=== PATIENT | male | born 1955 | race Caucasian/White ===

== ENCOUNTER → 2020-06-07 11:16 | Outpatient (BNVA) | payer SELFPAY | PROVIDERS: Visit Provider Nurse Practitioner Family | DX: Z12.5 Encounter for screening for malignant neoplasm of prostate (principal); I10 Essential (primary) hypertension | CPT/HCPCS: 80053; 80061; 81000; 85025; G0103 ==

== ENCOUNTER → 2021-01-09 14:21 | Outpatient (BNVA) | payer MEDICARE, SELFPAY | PROVIDERS: PCP Nurse Practitioner Family; Visit Provider Nurse Practitioner Family | DX: M54.2 Cervicalgia (principal); I10 Essential (primary) hypertension | CPT/HCPCS: 80053; 80061; 84443; 85025 ==

== ENCOUNTER → 2021-07-26 12:35 | Outpatient (BNVA) | payer MEDICARE, SELFPAY | PROVIDERS: PCP Nurse Practitioner Family; Visit Provider Nurse Practitioner Family | DX: Z00.00 Encounter for general adult medical examination without abnormal findings (principal); Z12.5 Encounter for screening for malignant neoplasm of prostate; I10 Essential (primary) hypertension | CPT/HCPCS: 80053; 80061; 85025; G0103 ==

== ENCOUNTER → 2022-02-07 10:14 | Outpatient (BNVA) | payer MEDICARE, SELFPAY | PROVIDERS: PCP Nurse Practitioner Family; Visit Provider Nurse Practitioner Family | DX: I10 Essential (primary) hypertension (principal); F41.9 Anxiety disorder, unspecified; K21.9 Gastro-esophageal reflux disease without esophagitis; Z53.20 Procedure and treatment not carried out because of patient's decision for unspecified reasons; Z71.6 Tobacco abuse counseling | CPT/HCPCS: 80053; 80061; 85025 ==

== ENCOUNTER 2022-02-21 11:16 | Emergency (ER) | payer MEDICARE, SELFPAY ==
[2022-02-21 11:38] VITALS: BP 163/104; PULSE 88; RESP 16; TEMP 36.8; O2SAT 100; BMI 25.1
--- NOTE | 2022-02-21 11:52 | ED_ITS ---
HPI - Abdominal Pain General: Chief Complaint: Abdominal Pain Stated Complaint: Severe stomach pain Time Seen by Provider: 02/21/22 11:46 Source: patient Mode of arrival: ambulatory History of Present Illness: 66-year-old male comes in complaining of epigastric abdominal pain with nausea vomiting. He has had symptoms for the las t 4 days progressively worsening he states he is thrown up about 6 times today. Has severe epigastric discomfort denies any hematochezia melena hematemesis coffee-ground emesis we will chest pain. No dysuria urgency or frequency MD elicited complaint: abdominal pain Pertinent past history: none Onset (ago): minute(s) Pain Consistency: constant Location: Epigastric Severity: moderate Quality: cramping Radiation: none Exacerbating factors: nothing Relieving factors: nothing Associated Symptoms: Reports dyspepsia, nausea, poor appetite and vomiting; Denies anorexia, belching, bloating, change in bowel habits, change in stool character, chills, coffee ground emesis, constipation, GI cramping, diarrhea, dysuria, excessive flatus, fever(s), heartburn, hematochezia, hematuria, hematemesis, fecal incontinence, loose stools, melena and syncope Review of Systems Const: Denies: fever(s), chills, fatigue or malaise ENMT: Denies: throat pain, ear or mastoid pain, nasal discharge or nasal congestion Card: Denies: chest pain, palpitations, irregular heart rhythm or syncope Resp: Denies: dyspnea, productive cough or non-productive cough GI: Reports: abdominal pain, nausea and vomiting; Denies: hematemesis, coffee ground emesis, heartburn, diarrhea, constipation, bloating, GI cramping, belching, excessive flatus, fecal incontinence, change in bowel habits, change in stool character, hematochezia or melena : Denies: flank pain, difficulty urinating, dysuria, urinary frequency, urinary urgency or hematuria Skin/Breast: Denies: rash or pruritus PFSH ED PFSH: Social History Smoking and tobacco status: current every day smoker (1 PPD) Quit status (tobacco): not considering quitting Second hand smoke exposure: Yes Alcohol intake: current Alcohol intake frequency: 0-2 Drinks per Day Alcohol type: beer Caregiver/support person: Yes Lives independently: Yes Household members: spouse Marital status: Current occupational status: retired History of recent travel: No Current gender identity: Male Special alan needs: No Agree to transfusion: Yes Physical Exam Const: COMMON NORMALS: no acute distress GENERAL APPEARANCE: cooperative and comfortable ORIENTATION/CONSCIOUSNESS: Yes awake, Yes oriented to person, Yes oriented to place and Yes oriented to time HENMT: COMMON NORMALS: normocephalic, atraumatic and hearing grossly normal bilaterally HEAD & SCALP: normocephalic and atraumatic Lymph: LYMPHATIC: no lymphadenopathy noted and no lymphedema noted Resp: COMMON NORMALS: normal respiratory effort, No retractions, No use of accessory muscles and clear to auscultation bilaterally AUSCULTATION: clear to auscultation bilaterally Cardio: COMMON NORMALS: regular rate, regular rhythm and No murmurs present (Cardio) RATE: regular rate RHYTHM: regular rhythm GI: COMMON NORMALS: Soft to palpation and No hepatosplenomegaly present AUSCULTATION: Yes normoactive bowel sounds PALPATION: Yes Soft to palpation, Yes Tenderness to palpation present (GI) (Epigastric), No Guarding due to palpation present (GI) and Yes No hepatosplenomegaly present Extremity: COMMON NORMALS: normal to inspection, capillary refill normal, no clubbing, cyanosis or edema, no calf tenderness and no pedal edema Neuro: SENSORIUM/ORIENTATION: Yes oriented to person, Yes oriented to place and Yes oriented to time Skin: COMMON NORMALS: no rashes or lesions noted GENERAL SKIN EXAM: no rashes or lesions noted Course Vital Signs: Vital signs: Vital Signs Temperature 98.2 F 02/21/22 11:38 Pulse Rate 88 02/21/22 15:01 Respiratory Rate 19 H 02/21/22 15:01 Blood Pressure 169/91 02/21/22 15:01 Pulse Oximetry 97 02/21/22 15:01 Oxygen Delivery Me thod 02/21/22 11:38 MDM - Abdominal Pain Medical Decision Making Cholelithiasis without cholecystitis. He has a lot of reflux from put on Protonix 40 twice daily have him follow-up with his primary care doctor may need an EGD possible further evaluation of his gallbladder bland diet return if not improving Medical Records I reviewed the patient's medical records. Lab Data I reviewed the patient's lab results. : 02/21/22 12:00 02/21/22 12:00 Labs/Radiology: Radiology Impressions Abdomen/Pelvis CT 02/21/22 12:33 IMPRESSION: 1. Cholelithiasis. Very minimal early inflammatory changes noted at the neck of the gallbladder. No bile duct dilatation. This can be further evaluated by ultrasound if clinically thought necessary. 2. Distal colonic diverticulosis without acute diverticulitis. 3. Lobulated cystic mass with septations from the upper pole LEFT kidney. Mass measures 4.6 x 4.1 cm. This is not a simple cyst and needs to undergo surveillance as this could represent a complex cysts or cystic renal cell neoplasm. Recommend nonurgent renal mass CT protocol or renal MRI with and without contrast. 4. Hepatic cysts. 5. Moderate hiatal hernia. Gallbladder Ultrasound 02/21/22 14:25 IMPRESSION: 1. Cholelithiasis without gallbladder wall thickening or pericholecystic fluid. There are several stones present. Some of these stones are in the gallbladder neck. Potential for entrapment. 2. No bile duct dilatation. 3. Hepatic cysts. Laboratory Results WBC 14.1 10^3/uL (4.0-10.0) H 02/21/22 12:00 RBC 5.19 10^6/uL (4.1-5.3) 02/21/22 12:00 Hgb 17.0 g/dL (11.7-16.6) H 02/21/22 12:00 Hct 50.9 % (42.0-52.0) 02/21/22 12:00 MCV 98.1 fl (80-94) H 02/21/22 12:00 MCH 32.8 pg (28.0-34.0) 02/21/22 12:00 MCHC 33.4 g/dL (30.0-36.0) 02/21/22 12:00 RDW 13.3 % (12.1-15.1) 02/21/22 12:00 Plt Count 239 10^3/cmm (130-400) 02/21/22 12:00 MPV 11.5 fL (7.4-10.4) H 02/21/22 12:00 Neut % (Auto) 76.9 % 02/21/22 12:00 Lymph % (Auto) 15.5 % 02/21/22 12:00 Barton % (Auto) 6.9 % 02/21/22 12:00 Eos % (Auto) 0.1 % 02/21/22 12:00 Baso % (Auto) 0.2 % 02/21/22 12:00 Neut # (Auto) 10.85 10^3/uL (1.8-7.7) H 02/21/22 12:00 Lymph # (Auto) 2.2 10^3/uL (0.8-4.8) 02/21/22 12:00 Barton # (Auto) 1.0 10^3/uL (0.2-0.9) H 02/21/22 12:00 Eos # (Auto) 0.0 10^3/uL (0.0-0.8) 02/21/22 12:00 Baso # (Auto) 0.0 10^3/uL (0.0-0.1) 02/21/22 12:00 Nucleated RBC % (auto) 0 % 02/21/22 12:00 Nucleated RBCs # 0.0 /100WBC 02/21/22 12:00 Sodium 141 mmol/L (136-145) 02/21/22 12:00 Potassium 4.4 mmol/L (3.5-5.1) 02/21/22 12:00 Chloride 103 mmol/L (98-107) 02/21/22 12:00 Carbon Dioxide 27 mmol/L (22-29) 02/21/22 12:00 Anion Gap 15.4 (5-19) 02/21/22 12:00 BUN 13 mg/dL (8-23) 02/21/22 12:00 Creatinine 0.7 mg/dL (0.7-1.2) 02/21/22 12:00 GFR Calculation 112.5 mL/min (90-130) 02/21/22 12:00 Glucose 117 mg/dL (65-115) H 02/21/22 12:00 Calculated Osmolality 293 mOsm/kg (285-295) 02/21/22 12:00 Calcium 9.8 mg/dL (8.5-10.5) 02/21/22 12:00 Total Bilirubin 1.0 mg/dL (0.15-1.2) 02/21/22 12:00 AST 30 U/L (0-40) 02/21/22 12:00 ALT 19 U/L (0-41) 02/21/22 12:00 Alkaline Phosphatase 87 U/L (40-130) 02/21/22 12:00 Total Protein 7.0 g/dL (6.6-8.7) 02/21/22 12:00 Albumin 3.9 g/dL (3.5-5.2) 02/21/22 12:00 Globulin 3.1 g/dL (1.3-4.6) 02/21/22 12:00 Lipase 16 U/L (13-60) 02/21/22 12:00 Urine Color Yellow (Yellow) 02/21/22 15:09 Urine Appearance Clear (CLEAR) 02/21/22 15:09 Urine pH 7.0 (5-7) 02/21/22 15:09 Ur Specific [place] 1.015 (1.005-1.030) 02/21/22 15:09 Urine Protein Trace 02/21/22 15:09 Urine Glucose (UA) Negative (Normal) 02/21/22 15:09 Urine Ketones 2+ (Negative) A 02/21/22 15:09 Urine Blood Negative (Negative) 02/21/22 15:09 Urine Nitrate Negative 02/21/22 15:09 Urine Bilirubin Negative (Negative) 02/21/22 15:09 Urine Urobilinogen >=8.0 mg/dL (Negative) H 02/21/22 15:09 Ur Leukocyte Esterase Negative 02/21/22 15:09 Urine RBC 0-4 /hpf (0-2) H 02/21/22 15:09 Urine WBC 0-4 /hpf (0-5) H 02/21/22 15:09 Ur Squamous Epith Cells 0-4 /hpf (0-5) H 02/21/22 15:09 Amorphous Sediment Not Reportable 02/21/22 15:09 Urine Bacteria Trace /hpf (NONE) 02/21/22 15:09 Discharge Plan Discharge Patient Disposition: Home Clinical Impression: GERD (gastroesophageal reflux disease), Left kidney mass, Cholelithiasis Condition: Stable Prescriptions: New Protonix 40 mg tablet,delayed release (DR/EC) 40 mg PO BID Qty: 60 0RF Discontinued omeprazole 20 mg capsule,delayed release(DR/EC) 20 mg PO DAILY PRN (Reason: Heartburn) No Action lisinopril 20 mg tablet 20 mg PO QAM sertraline 100 mg tablet 100 mg PO QAM Discharge Orders: Discharge ED (Routine); Ordered 02/21/22 Ordered By: Armando Aguirre Referrals: Jaimie Dubon FNP [Primary Care Provider] - Discharge Diet: Usual diet Discharge Activity: Resume usual activity Patient Instructions: Opioid Safety, Pain Management Activity Restrictions/Additional Instructions: Follow-up with your primary care provider for referral for EGD and further evaluation of the gallstones. You also need further imaging of the left renal mass on an outpatient basis. Stop omeprazole start pantoprazole 40 mg twice daily. Coding Level of Care Code ED Stone Driller Helper for Chg Fwd Exam Comprehensive
[2022-02-21] MEDS: lidocaine 2% viscous 15 ML, aluminum-mag hydrox-simethicon 30 ML, sucralfate oral liq 1 GM PO (12:04)
[2022-02-21] MEDS: sodium chloride 0.9% 1,000 ML 999 ML IV (12:04)
[2022-02-21 12:09] LABS: Basophils % 0.2 %; Eosinophils % 0.1 %; Hematocrit 50.9 % (42.0-52.0); Lymphocytes # 2.2 10^3/uL (0.8-4.8); Lymphocytes % 15.5 %; Mean Corpuscular HGB Conc 33.4 g/dL (30.0-36.0); Mean Corpuscular Hemoglobin 32.8 pg (28.0-34.0); Mean Corpuscular Volume 98.1 fl (80-94); Mean Platelet Volume 11.5 fL (7.4-10.4); Monocytes % 6.9 %; Neutrophils # 10.85 10^3/uL (1.8-7.7); Neutrophils % 76.9 %; Nucleated Red Blood Cells % 0 %; Platelet Count 239 10^3/cmm (130-400); Red Blood Count 5.19 10^6/uL (4.1-5.3); Red Cell Distribution Width 13.3 % (12.1-15.1); White Blood Count 14.1 10^3/uL (4.0-10.0)
--- NOTE | 2022-02-21 12:10 | PC.NURSE ---
PT PLACED ON CONTINUOUS SPO2, NIBP, AND CM.
[2022-02-21 12:30] VITALS: BP 166/100; PULSE 60; RESP 14; O2SAT 97
[2022-02-21 12:32] LABS: Alanine Aminotransferase 19 U/L (0-41); Albumin Level 3.9 g/dL (3.5-5.2); Alkaline Phosphatase 87 U/L (40-130); Blood Urea Nitrogen 13 mg/dL (8-23); Calcium 9.8 mg/dL (8.5-10.5); Carbon Dioxide 27 mmol/L (22-29); Chloride 103 mmol/L (98-107); Creatinine Clr Calc Pharmacy 95.7512; Globulin 3.1 g/dL (1.3-4.6); Glomerular Filtration Rate 112.5 mL/min (90-130); Glucose 117 mg/dL (65-115); Lipase 16 U/L (13-60); Osmolality Calculated 293 mOsm/kg (285-295); Sodium 141 mmol/L (136-145)
--- NOTE | 2022-02-21 12:33 | CT_ITS ---
WS: [id number] CT ABDOMEN AND PELVIS WITH CONTRAST HISTORY: abd pain, nausea, vomiting and diarrhea TECHNIQUE: Imaging performed of the abdomen and pelvis with IV contrast. Single phase imaging of the abdomen. Coronal and sagittal reformats are submitted. All CT scans at [facility] use at [address] one of these dose optimization techniques: automated exposure control; mA and/or kV adjustment per patient size (includes targeted exams where dose is matched to clinical indication); or iterative re construction. IV CONTRAST: Omnipaque 350; 80 mL IV. Oral contrast: No DLP: 468.14 mGy.cm COMPARISON: None available. Lower thorax: Lung bases are clear. Heart is normal size. Moderate-sized hiatal hernia. Liver/biliary system: Scattered low-attenuation masses within the liver. The largest in the LEFT lobe measures 2.3 cm and is a cyst. Some of these low-attenuation lesions are too small to characterize. No bile duct dilatation. Gallbladder: Normally distended gallbladder. There is some very mild wall thickening and mild hyperem ia towards the neck of the gallbladder. There are stones within the lumen of the gallbladder. No comm on bile duct dilatation. Pancreas: Normal size pancreas and pancreatic duct. No adjacent inflammation. Spleen: Normal spleen with granulomata. Adrenal glands: Normal. Right kidney: Normal. Left kidney: Normal size kidney. There is an exophytic cystic mass with septations extending from the superior kidney. Mass is exophytic laterally and measures 4.6 x 4.1 cm. There are several septations noted within the mass. Septations are thin. Aorta: Normal. Lymphadenopathy: None. Free fluid: None. GI tract: Nondistended stomach. No small bowel obstruction. Very small what is probably the appendix is identified. No evidence for appendicitis. Numerous diverticula throughout the descending and sigmo id colon. No acute diverticulitis. Abdominal wall: Ventral umbilical hernia contains fat only. Hernia orifice is 1.6 cm. Pelvis: No free fluid or adenopathy within the pelvis. Bones: Increase in the lumbar lordosis. L3 anterolisthesis by 5 mm. LEFT curvature lumbar spine. CT/CT abdomen pelvis w con* [id number] IMPRESSION: 1. Cholelithiasis. Very minimal early inflammatory changes noted at the neck o f the gallbladder. No bile duct dilatation. This can be further evaluated by ul trasound if clinically thought necessary. 2. Distal colonic diverticulosis without acute diverticulitis. 3. Lobulated cystic mass with septations from the upper pole LEFT kidney. Mass measures 4.6 x 4.1 cm. This is not a simple cyst and needs to undergo surveill ance as this could represent a complex cysts or cystic renal cell neoplasm. Rec [facility] nonurgent renal mass CT protocol or renal MRI with and without contrast. 4. Hepatic cysts. 5. Moderate hiatal hernia.
[2022-02-21 12:42] LABS: Anion Gap 15.4 (5-19); Aspartate Amino Transferase 30 U/L (0-40); Potassium 4.4 mmol/L (3.5-5.1)
[2022-02-21] MEDS: iohexol 350 mg/mL 100 mL Btl IV (13:50)
[2022-02-21 14:00] VITALS: BP 160/93; PULSE 61; RESP 25; O2SAT 99
--- NOTE | 2022-02-21 14:25 | US_ITS ---
WS: [id number] RIGHT UPPER QUADRANT ULTRASOUND HISTORY: abnormal CT, abd pain COMPARISON: CT 02/21/2022 Liver: 13.3 cm in length. Liver is normal size. There are several hepatic cysts that were described b y CT also. The largest identified by ultrasound towards the diaphragmatic surface measures 2.0 x 2.1 x 1.8 cm. No bile duct dilatation. Portal Vein: Normal hepatopetal flow with monophasic waveform. Gallbladder: Normally distended gallbladder. There are numerous stones within the lumen. Some of thes e stones are near the gallbladder neck and demonstrate potential for entrapment. There is no wall thi ckening or adjacent inflammation and no common bile duct dilatation. CBD: 0.2 cm Pancreas: Poorly visualized due to bowel gas. Right kidney: 10.6 cm in length. Normal size and echogenicity. No hydronephrosis or mass. Aorta and IVC: Unremarkable abdominal aorta and IVC. No ascites. US/US gall bladder [id number] IMPRESSION: 1. Cholelithiasis without gallbladder wall thickening or pericholecystic fluid . There are several stones present. Some of these stones are in the gallbladder neck. Potential for entrapment. 2. No bile duct dilatation. 3. Hepatic cysts.
[2022-02-21 15:01] VITALS: BP 169/91; PULSE 88; RESP 19; O2SAT 97
[2022-02-21 15:34] LABS: Bilirubin Urine Negative (Negative); Blood Urine Negative (Negative); Glucose Urine UA Negative (Normal); Ketones Urine 2+ (Negative); Leukocyte Esterase Urine Negative; Nitrate Urine Negative; Protein Urine Trace; Specific Gravity, Urine 1.015 (1.005-1.030); Urine Appearance Clear (CLEAR); Urine Color Yellow (Yellow); Urobilinogen Urine >=8.0 mg/dL (Negative)
[2022-02-21 15:35] LABS: Add Urine Microscopic? YES
[2022-02-21 15:42] LABS: Add Urine Culture? No; Bacteria Urine TRACE /hpf; RBC Urine 0-4 /hpf (0-2); Squamous Epithelial Cell Urine 0-4 /hpf (0-5); WBC Urine 0-4 /hpf (0-5)
== END 2022-02-21 15:42 | disposition home or self-care (01) ==
PROVIDERS: Emergency Provider Family Medicine; PCP Nurse Practitioner Family
DX: K21.9 Gastro-esophageal reflux disease without esophagitis (principal); N28.89 Other specified disorders of kidney and ureter; K80.20 Calculus of gallbladder without cholecystitis without obstruction; F17.210 Nicotine dependence, cigarettes, uncomplicated
CPT/HCPCS: 36415; 74177; 76705; 80053; 81001; 83690; 85025; 96360; 99285; J7030; Q9967

== ENCOUNTER → 2022-03-09 07:59 | Outpatient (BNVA) | payer MEDICARE, SELFPAY | PROVIDERS: PCP Nurse Practitioner Family; Visit Provider Surgery | DX: R10.13 Epigastric pain (principal); K21.9 Gastro-esophageal reflux disease without esophagitis | CPT/HCPCS: 99203 ==

== ENCOUNTER 2022-03-21 10:52 | Day surgery (SDC) | payer MEDICARE, SELFPAY ==
[2022-03-13 10:00] VITALS: BMI 25.1
[2022-03-21 11:38] VITALS: BP 160/122; PULSE 99; RESP 18; TEMP 36.1; O2SAT 98
[2022-03-21] MEDS: sodium chloride 0.9% 1,000 ML 30 ML IV (11:40)
[2022-03-21 13:05] VITALS: BP 160/90; PULSE 99; RESP 14; TEMP 36.1; O2SAT 97
--- NOTE | 2022-03-21 13:10 | ANES.PREANE2 ---
Pre-Anesthetic Assessment Height/Weight: Height 1.78 m Weight 79.379 kg Temp Pulse Resp BP Pulse Ox O2 Del Method FiO2 97.0 F L 99 14 160/90 97 3 03/21/22 13:05 03/21/22 13:05 03/21/22 13:05 03/21/22 13:05 03/21/22 13:05 03/21/22 13:05 03/21/22 13:05 Operation Date: 03/21/22 11:30 Proposed Procedures p EGD [id number],K21.9(Not Applicable) - Trung Gerber DO Familial anesthetic complications: None Was Beta Anya taken within 24 hours: N/A Was Clonidine taken within 24 hours: N/A Last intake: Intake Last Liquid Date 03/20/22 Last Liquid Time 21:30 Last Solid Date 03/20/22 Last Solid Time 21:30 Social Tobacco and No alcohol 1 pack(s) per day 50 pack years Exam alert, oriented x 3, clear to auscultation bilaterally and regular rate & rhythm Airway Submandibular: within normal limits Cervical ROM: within normal limits Mallampati: Class II Dentition: chipped History/ROS No significant history except as noted Pulmonary None reported CV/HEM Hypertension None reported Hepatic None reported GI Gastroesophageal Reflux Disease Metabolic None reported Neuropsych None reported Anesthetic Plan ASA status: 2 Anesthesia: Anesthesia Evaluation Risk of > 500 ml blood loss (7ml/kg in children): No Medications/Allergies Home Medications Medication Instructions Recorded Confirmed Last Taken Type lisinopril 20 mg tablet 20 mg PO QAM 02/21/22 03/21/22 03/20/22 History pantoprazole 40 mg tablet,delayed 40 mg PO BID #60 tabs 02/21/22 03/21/22 03/20/22 Rx release (Protonix) sertraline 100 mg tablet 100 mg PO QAM 02/21/22 03/21/22 03/20/22 History Allergies Allergy/AdvReac Type Severity Reaction Status Date / Time No Known Allergies Allergy Verified 03/21/22 11:28 Current Medications Generic Name Dose Route Start Last Admin Trade Name Freq PRN Reason Stop Dose Admin Sodium Chloride 1,000 mls @ 30 mls/hr 03/21/22 11:15 03/21/22 11:40 Sodium Chloride 0.9% IV 03/22/22 11:14 30 mls/hr .Q24H SUE Administration PFSH Anesthesia Surgical History Hx of right knee surgery Hx of shoulder surgery left shoulder Social History Smoking and tobacco status: current every day smoker (1 PPD) Quit status (tobacco): not considering quitting Second hand smoke exposure: Yes Alcohol intake: current Alcohol intake frequency: 0-2 Drinks per Day Alcohol type: beer Caregiver/support person: Yes Lives independently: Yes Household members: spouse Marital status: Current occupational status: retired History of recent travel: No Current gender identity: Male Special alan needs: No Agree to transfusion: Yes Data Anesthesia Cardiac Studies: No Data to Display
--- NOTE | 2022-03-21 13:11 | ANE.PACU2 ---
Inpatient post-anesthesia follow up: Airway intact: Yes Vital signs: Temperature 97.0 F Pulse Rate 99 Respiratory Rate 14 Blood Pressure 160/90 Pulse Oximetry 97 Oxygen Delivery Me thod Room Air Oxygen Flow Rate Fraction of Inspir ed Oxygen 3 Hydration adequate: Yes Nausea and vomiting: No Pain level: Other (0) Mental status: Baseline
[2022-03-21 13:14] VITALS: BP 175/115; PULSE 75; RESP 18; O2SAT 97
== END 2022-03-21 13:30 | disposition home or self-care (01) ==
PROVIDERS: PCP Nurse Practitioner Family; Visit Provider Surgery
PROC: 0DJ08ZZ Inspection of Upper Intestinal Tract, Via Natural or Artificial Opening Endoscopic (ICD-10-PCS; CPT 43235; principal; 2022-03-21 11:30)
DX: K21.9 Gastro-esophageal reflux disease without esophagitis (principal); K44.9 Diaphragmatic hernia without obstruction or gangrene; K29.50 Unspecified chronic gastritis without bleeding; B96.81 Helicobacter pylori [H. pylori] as the cause of diseases classified elsewhere; F17.210 Nicotine dependence, cigarettes, uncomplicated; I10 Essential (primary) hypertension
CPT/HCPCS: 43239; 88305; 88342; J7030

== ENCOUNTER → 2022-04-03 10:39 | Outpatient (BNVA) | payer MEDICARE, SELFPAY | PROVIDERS: PCP Nurse Practitioner Family; Visit Provider Surgery | DX: Z09 Encounter for follow-up examination after completed treatment for conditions other than malignant neoplasm (principal); K21.9 Gastro-esophageal reflux disease without esophagitis | CPT/HCPCS: 99212 ==

== ENCOUNTER 2022-05-07 13:37 | Outpatient (CLI) | payer MEDICARE, SELFPAY ==
--- NOTE | 2022-05-07 14:20 | MR_ITS ---
WS: [id number] MRI ABDOMEN with and without CONTRAST. COMPARISON: CT 02/21/2022 and prior gallbladder ultrasound 02/21/2022 Multiplanar, multisequence imaging is performed with and without contrast. MultiHance 17 mL's IV. HISTORY: Indeterminate LEFT renal mass. LEFT kidney: Normal size. Lobulated mass from the superior lateral LEFT kidney measures 5.0 x 3.9 x 4 .0 cm. Predominantly exophytic from the kidney with a few small septations or 2 adjacent cysts. There is no enhancement. The septations do not enhance. There is an additional very tiny 0.4 cm cyst in th e upper pole. There is no obstruction of the kidney. RIGHT kidney is negative. Liver is normal size. There are a few scattered simple cysts without enhancement within the liver. Th [place] were also identified on the prior CT and ultrasound. Largest cyst in LEFT lobe measures approxima tely 1.7 cm. Gallbladder is normally distended with numerous stones. No adjacent pericholecystic flui d and no bile duct obstruction. No adrenal mass. No ascites. No adenopathy. MR/MR abdomen wo/w con* [id number] IMPRESSION: 1. Mass upper pole LEFT kidney is a cyst with nonenhancing septations or sever al adjacent cysts. There is no enhancement or solid component. No further imagi ng workup necessary. 2. No renal obstruction. 3. Cholelithiasis without acute cholecystitis. 4. Numerous small hepatic cysts.
== END 2022-05-07 13:38 | disposition home or self-care (01) ==
LOC: RAD 13:39
PROVIDERS: PCP Nurse Practitioner Family; Visit Provider Nurse Practitioner Family
DX: N28.89 Other specified disorders of kidney and ureter (principal); K80.20 Calculus of gallbladder without cholecystitis without obstruction; K76.89 Other specified diseases of liver
CPT/HCPCS: 74183

== ENCOUNTER → 2022-07-02 16:56 | Outpatient (BNVA) | payer MEDICARE, SELFPAY | PROVIDERS: PCP Nurse Practitioner Family; Visit Provider Nurse Practitioner Family | DX: K80.20 Calculus of gallbladder without cholecystitis without obstruction (principal) | CPT/HCPCS: 80053; 85025 ==

== ENCOUNTER → 2022-07-05 14:08 | Outpatient (BNVA) | payer MEDICARE, SELFPAY | PROVIDERS: PCP Nurse Practitioner Family; Visit Provider Surgery | DX: K80.20 Calculus of gallbladder without cholecystitis without obstruction (principal) | CPT/HCPCS: 99213 ==

== ENCOUNTER 2022-07-26 11:03 | Day surgery (SDC) | payer MEDICARE, SELFPAY ==
[2022-07-25 09:03] VITALS: BMI 25.1
[2022-07-26] VITALS (11 sets, daily range): BP systolic 156–197; BP diastolic 101–124; PULSE 81–93; RESP 16–18; TEMP 36.1–36.6; O2SAT 92–99
[2022-07-26] MEDS: sodium chloride 0.9% 1,000 ML 30 ML IV (11:38)
--- NOTE | 2022-07-26 13:18 | W.PM.OPSUD ---
Surgery/Procedure H&P Update DATE OF PROCEDURE: July 26, 2022 DATE H&P PERFORMED: 07/05/22 H&P UPDATE INFORMATION: I have reviewed H&P completed within last 30 days, I have examined patient prior to procedure and No changes to prior documentation PREOP DIAGNOSIS: Symptomatic cholelithiasis PLANNED PROCEDURE: Operation Date: 07/26/22 13:05 Proposed Procedures p 02130 lap pedro pablo K80.20(Not Applicable) - Trung Gerber DO
[2022-07-26] MEDS: ceFAZolin 2,000 MG in sodium chloride 0.9% (plus) 50 ML 100 MG IV (13:42)
[2022-07-26] MEDS: lidocaine-epi 2% 20 mL INJ INJECTION (14:15)
--- NOTE | 2022-07-26 14:30 | ANES.PREANE2 ---
Pre-Anesthetic Assessment Height/Weight: Height 1.78 m Weight 79.379 kg Temp Pulse Resp BP Pulse Ox O2 Del Method 97.8 F 93 18 156/114 97 07/26/22 11:22 07/26/22 11:22 07/26/22 11:22 07/26/22 11:22 07/26/22 11:22 07/26/22 11:24 Preop Diagnosis: Symptomatic cholelithiasis Operation Date: 07/26/22 13:05 Proposed Procedures p [id number] lap pedro pablo K80.20(Not Applicable) - Trung Gerber DO Familial anesthetic complications: none Was Beta Anya taken within 24 hours: N/A Was Clonidine taken within 24 hours: N/A Last intake: Intake Last Liquid Date 07/25/22 Last Liquid Time 17:00 Last Solid Date 07/25/22 Last Solid Time 17:00 Social Tobacco and No alcohol Exam alert, oriented x 3 and regular rate & rhythm Airway Submandibular: within normal limits Cervical ROM: within normal limits Mallampati: Class II Dentition: chipped Pulmonary Chronic Obstructive Pulmonary Disease CV/HEM Hypertension GI Gastroesophageal Reflux Disease Anesthetic Plan ASA status: 2 Anesthesia: General Medications/Allergies Home Medications Medication Instructions Recorded Confirmed Last Taken Type lisinopril 20 mg tablet 20 mg PO QAM 02/21/22 07/25/22 07/25/22 History pantoprazole 40 mg tablet,delayed 40 mg PO DAILY #30 tabs 07/02/22 07/25/22 07/25/22 Rx release (Protonix) Allergies Allergy/AdvReac Type Severity Reaction Status Date / Time No Known Allergies Allergy Verified 07/26/22 11:17 Current Medications Generic Name Dose Route Start Last Admin Trade Name Freq PRN Reason Stop Dose Admin Sodium Chloride 1,000 mls @ 30 mls/hr 07/26/22 11:15 07/26/22 11:38 Sodium Chloride 0.9% IV 07/27/22 11:14 30 mls/hr .Q24H SUE Administration Lidocaine/Epinephrine 20 ml 07/26/22 14:15 07/26/22 14:15 Lidocaine-Epi 2% 20 Ml Inj INJECTION 07/26/22 14:16 4 ml ONCE ONE Administration PFSH Anesthesia Surgical History Hx of right knee surgery Hx of shoulder surgery left shoulder Social History Smoking and tobacco status: current every day smoker (1 PPD) Quit status (tobacco): not considering quitting Second hand smoke exposure: Yes Alcohol intake: current Alcohol intake frequency: 0-2 Drinks per Day Alcohol type: beer Caregiver/support person: Yes Lives independently: Yes Household members: spouse Marital status: Current occupational status: retired History of recent travel: No Current gender identity: Male Special alan needs: No Agree to transfusion: Yes Data Anesthesia Cardiac Studies: No Data to Display
--- NOTE | 2022-07-26 14:56 | P.OP_ITS ---
Operative Report Date of procedure: July 26, 2022 Pre-op diagnosis: Preop Diagnosis Symptomatic cholelithiasis Post-op diagnosis: other (Symptomatic cholelithiasis, hydropic gallbladder) Procedure done: Laparoscopic cholecystectomy Specimens removed/disposition: Gallbladder Surgeon: Dr. Trung Gerber DO Anesthesia: General Estimated blood loss (mL): 5 Complications: None apparent Brief History: This is a very pleasant 67-year-old gentleman who came to my office with symptomatic cholelithiasis. Laparoscopic cholecystectomy was indicated. The risk and benefits were explained and documented. Procedure: Patient was wheeled into the operative room and placed on the OR table in a supine position. Abdomen was inspected prepped and draped in usual sterile fashion. Time-out was performed and all present were in agreement. A 15 blade scalp was used to make a stab incision in the left upper quadrant and intra- abdominal insufflation was achieved using a Veress needle. After localizing the tissue incisions were made and a 5 millimeter trocar was placed into the umbilicus as well as 2 in the right upper quadrant. A 12 millimeter trocar was placed in the epigastrium. Gallbladder was grasped and elevated. The gallbladder was quite hydropic and had to be popped in order to be grasped. Significant clear fluid came out and a couple of black stones fell but were retrieved. The triangle of Calot was carefully dissected using blunt dissection and electrocautery until the triangle of [place]ot clearly identified. The cystic duct was clipped proximally and double clipped distally. The duct was then ligated proximally. The cystic artery was doubly clipped and ligated. The gallbladder was then removed from the liver bed using electrocautery. The gallbladder was removed from the abdomen using an Endo-Catch bag through the epigastric incision. The liver bed was inspected and no bleeding was seen. The abdomen was irrigated and suctioned. The epigastric incision had to be sig nificantly enlarged to accommodate the gallbladder. The fascia was closed with 0 Vicryl in a Mika-Calvin in a [id number] fashion. All ports removed. Skin was washed and dried. Incisions were closed with 4-0 Monocryl in a subcuticular interrupted fashion. Skin glue was applied. Patient tolerated the procedure well.
[2022-07-26] MEDS: fentaNYL 50 mcg/mL INJ 2mL IVP (15:13)
--- NOTE | 2022-07-26 17:04 | ANE.PACU2 ---
Inpatient post-anesthesia follow up: Airway intact: Yes Vital signs: Temperature 97 F Pulse Rate 91 Respiratory Rate 18 Blood Pressure 165/101 Pulse Oximetry 92 Oxygen Delivery Me thod Room Air Oxygen Flow Rate 6 Fraction of Inspir ed Oxygen Hydration adequate: Yes Nausea and vomiting: No Pain level: 3 Mental status: Baseline
== END 2022-07-26 16:30 | disposition home or self-care (01) ==
PROVIDERS: PCP Nurse Practitioner Family; Visit Provider Surgery
PROC: 0FT44ZZ Resection of Gallbladder, Percutaneous Endoscopic Approach (ICD-10-PCS; CPT 47562; principal; 2022-07-26 12:45)
DX: K80.10 Calculus of gallbladder with chronic cholecystitis without obstruction (principal); I10 Essential (primary) hypertension; J44.9 Chronic obstructive pulmonary disease, unspecified; K21.9 Gastro-esophageal reflux disease without esophagitis; F17.210 Nicotine dependence, cigarettes, uncomplicated
CPT/HCPCS: 47562; 88304; J0690; J1100; J1170; J2405; J2704; J2710; J3010; J3490; J7030

== ENCOUNTER → 2022-08-08 14:49 | Outpatient (BNVA) | payer MEDICARE, SELFPAY | PROVIDERS: PCP Nurse Practitioner Family; Visit Provider Surgery | DX: Z98.890 Other specified postprocedural states (principal); Z90.49 Acquired absence of other specified parts of digestive tract | CPT/HCPCS: 99024 ==

== ENCOUNTER → 2022-12-21 09:53 | Outpatient (BNVA) | payer MEDICARE, SELFPAY | PROVIDERS: PCP Nurse Practitioner Family; Visit Provider Nurse Practitioner Family | DX: I10 Essential (primary) hypertension (principal); Z12.5 Encounter for screening for malignant neoplasm of prostate; Z00.00 Encounter for general adult medical examination without abnormal findings; Z12.11 Encounter for screening for malignant neoplasm of colon; Z71.6 Tobacco abuse counseling | CPT/HCPCS: 80053; 80061; 84443; 85025; G0103 ==

== ENCOUNTER → 2023-12-31 09:36 | Outpatient (BNVA) | payer MEDICARE, SELFPAY | PROVIDERS: PCP Nurse Practitioner Family; Visit Provider Nurse Practitioner Family | DX: I10 Essential (primary) hypertension (principal) | CPT/HCPCS: 80053; 80061; 83735; 84443; 85025; G0103 ==

== ENCOUNTER → 2025-02-03 11:21 | Outpatient (BNVA) | payer MEDICARE, SELFPAY | PROVIDERS: PCP Nurse Practitioner Family; Visit Provider Nurse Practitioner Family | DX: I10 Essential (primary) hypertension (principal); Z12.5 Encounter for screening for malignant neoplasm of prostate | CPT/HCPCS: 80053; 80061; 84443; 85025; G0103 ==

== ENCOUNTER 2025-02-15 07:40 | Outpatient (CLI) | payer MEDICARE, SELFPAY ==
--- NOTE | 2025-02-15 07:30 | CT_ITS ---
WS: [id number] LDCT LUNG CANCER SCREENING HISTORY: F17.210 - Nicotine dependence, cigarettes, uncomplicated TECHNIQUE: Axial imaging performed from the apices to 1 cm below the costophrenic angles. Coronal and sagittal reformats are submitted with axial MIP series. All CT scans at [facility] use at least one of these dose optimization techniques: automated exposure control; mA and/or kV adjustment per patient size (includes targeted exams where dose is matched to clinical indication); or iterative reconstruction. DLP: 63.01 mGy.cm DIvol: Mean CTDIvol: 1.20 (mGy) COMPARISON: None available. Diagnostic quality: Satisfactory Lungs: Linear scar at the RIGHT apex. Calcified granuloma anterior LEFT upper lobe. Calcified granuloma lingula. No mass or nodule. No endobronchial lesions. Heart: Normal size heart with no pericardial effusion.. Other findings: No mediastinal or hilar adenopathy. Normal size pulmonary artery. Large hiatal hernia. Hepatic cysts. Prior cholecystectomy. Complex LEFT renal cyst with wall calcification. Previously evaluated by MRI. CT/CT lung screening [id number] IMPRESSION: LUNG-RADS: 2-Benign Appearance or Behavior FOLLOW UP: 12 Month: Continue annual screening with LDCT OTHER FINDINGS (S MODIFIER): None.
== END 2025-02-15 07:41 | disposition home or self-care (01) ==
LOC: RAD 07:41
PROVIDERS: PCP Nurse Practitioner Family; Visit Provider Nurse Practitioner Family
DX: Z12.2 Encounter for screening for malignant neoplasm of respiratory organs (principal); F17.210 Nicotine dependence, cigarettes, uncomplicated; J98.4 Other disorders of lung; J84.10 Pulmonary fibrosis, unspecified; K44.9 Diaphragmatic hernia without obstruction or gangrene; Z90.49 Acquired absence of other specified parts of digestive tract; K76.89 Other specified diseases of liver
CPT/HCPCS: 71271